=== PATIENT | female | born 1945 | race Caucasian/White ===

== ENCOUNTER 2018-02-24 04:29 | Emergency (ER) | payer OTHER ==
[~2018-02-24] VITALS: Ht 167.6 cm; Wt 86.2 kg
[2018-02-24 04:45] VITALS: BP 131/85
[2018-02-24] MEDS ORDERED: cefTRIAXone SOD 1,000 MG VL IM ONE (07:15)
[2018-02-24] MEDS ORDERED: traMADol HCL 50 MG TAB PO ONE (07:15)
[2018-02-24] MEDS ORDERED: cefTRIAXone SOD 1,000 MG VL ONE (07:16)
== END 2018-02-24 07:45 | disposition home or self-care (01) ==
LOC: ER 04:31
DX: H66.91 Otitis media, unspecified, right ear (principal); F17.210 Nicotine dependence, cigarettes, uncomplicated
CPT/HCPCS: 96372; 99283; J0696

== ENCOUNTER 2024-12-08 14:19 | Inpatient (IN) | payer OTHER ==
[~2024-12-08] VITALS: Ht 167.6 cm; Wt 102.0 kg
--- NOTE | 2024-12-08 14:34 | ECG ---
[facility] Test Date: 2024-12-08 Test Time: 14:28:34 Pat Name: SUSSY DAVISON Department: ED Room: 0217T Gender: F Pulp Screen Operator: SARTHAK : 1945 Requested By: SIMONA ABRAHAM Order Number: [id number] Reading MD: Paul Lake Measurements Intervals [place] Rate: 61 P: 51 MI: 179 QRS: 17 QRSD: 107 T: 24 QT: 419 QTc: 422 Interpretive Statements Sinus rhythm Low voltage, precordial leads Borderline T abnormalities, anterior leads Electronically Signed On 12-09-2024 17:29:54 PDT by Paul Lake Please click the below link to view image of tracing.
--- NOTE | 2024-12-08 14:50 | ED.PDOC ---
SOB-HPI HPI Comments 79y F who presents to the ED via EMS for chief complaint of shortness of breath. Per EMS, pt was at urgent care after being brought by family for nausea, vomiting and diarrhea for the past few days. Pt in the ED, had EKG done and states it was abnormal with Q waves and EMS was called to the scene. EMS arrived on scene and noted pt was placed on 02 with 02 sat ranging from 90 to 96% with no noted respiratory distress. Pt in the ED, states she quit cigarettes 6 months prior and since, has been having increasing shortness of breath since. Pt otherwise denies any other symptoms at this time. 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 Family History Family History: Unknown Social History Smoker: Quit Less Than 1 Year, Cigarettes Alcohol: Denies ETOH Use Drugs: Denies Drug Use Lives In: Home Constitutional: denies: chills, diaphoresis, fatigue, fever, malaise, sweats, weakness, others EENTM: denies: blurred vision, double vision, ear bleeding, ear discharge, ear drainage, ear pain, ear ringing, eye pain, eye redness, hearing loss, mouth pain, mouth swelling, nasal discharge, nose bleeding, nose congestion, nose pain, photophobia, tearing, throat pain, throat swelling, voice changes, others Respiratory: reports: shortness of breath; denies: cough, hemoptysis, orthopnea, SOB at rest, SOB with excertion, stridor, wheezing, others Cardiovascular: denies: chest pain, dizzy spells, diaphoresis, Dyspnea on exertion, edema, irregular heart beat, left arm pain, lightheadedness, palpitations, PND, syncope, others Gastrointestinal: denies: abdomen distended, abdominal pain, blood streaked bowels, constipated, diarrhea, dysphagia, difficulty swallowing, hematemesis, melena, nausea, poor appetite, poor fluid intake, rectal bleeding, rectal pain, vomiting, others Genitourinary: denies: abnormal vagina bleeding, burning, dyspareunia, dysuria, flank pain, frequency, hematuria, incontinence, pain, , vagina discharge, urgency, others Neurological: denies: dizziness, fainting, headache, left sided numbness, left sided weakness, numbness, paresthesia, pre-existing deficit, right sided numbness, right sided weakness, seizure, speech problems, tingling, tremors, weakness, others Musculoskeletal: denies: back pain, gout, joint pain, joint swelling, muscle pain, muscle stiffness, neck pain, others Integumetry: denies: bruises, change in color, change in hair/nails, dryness, laceration, lesions, lumps, rash, wounds, others Allergic/Immunocompromised: denies: Difficulty Healing, Frequent Infections, Hives, Itching, others Hematologic/Lymphatic: denies: anemia, blood clots, easy bleeding, easy bruising, swollen glands, others Endocrine: denies: excessive hunger, excessive sweating, excessive thirst, excessive urination, flushing, intolerance to cold, intolerance to heat, unexplained weight gain, unexplained weight loss, others Psychiatric: denies: anxiety, bipolar disorder, depression, hopeless, panic disorder, schizophrenia, sleepless, suicidal, others All Other Systems: Reviewed and Negative Physical Exam General Appearance: No Apparent Distress, Normal HEENT: Normal ENT Inspection, Pharynx Normal, TMs Normal Neck: Full Range of Motion, Non-Tender, Normal, Normal Inspection Respiratory: Chest Non-Tender, Lungs Clear, No Accessory Muscle Use, No Respiratory Distress, Normal Breath Sounds Cardiovascular: No Edema, No JVD, No Murmur, No Gallop, Normal Peripheral Pulses, Regular Rate/Rhythm Breast Exam: Deferred Gastrointestinal: No Organomegaly, Non Tender, No Pulsatile Mass, Normal Bowel Sounds, Soft Genitalia: Deferred Pelvic: Deferred Rectal: Deferred Extremities: No calf tenderness, Normal capillary refill, Normal inspection, Normal range of motion, Non-tender, No pedal edema Musculoskeletal : Apperance: Normal Neurologic: Alert, metal technician II-XII nml as Tested, No Motor Deficits, Normal Affect, Normal Mood, No Sensory Deficits Cerebellar Function: Normal Reflexes: Normal Skin: Dry, Normal Color, Warm Lymphatic: No Adenopathy EKG EKG : Pulse Rate (adult): 61 [place]: Normal Cardiac Rhythm: NSR Block: None Hypertrophy: None ST: Normal Was a procedure done? Was a procedure done?: No Differential Dx Differential Diagnosis: Anxiety, Asthma, Bronchitis, CHF, COPD, Hypertension, Myocardial infarction, Pneumonia, Pulmonary Embolism, Respiratory Distress, URI X-Ray, Labs, Meds, VS Vital Signs Date Time Temp Pulse Resp B/P (MAP) Pulse Ox O2 Delivery O2 Flow Rate FiO2 12/08/24 15:21 94 Nasal Cannula* 1 12/08/24 15:18 97.6 65 14 148/82 (104) 94 97.6 12/08/24 15:18 65 14 94 Nasal Cannula* 1 12/08/24 14:57 97.9 64 20 160/72 (101) 95 97.9 12/08/24 14:50 61 12/08/24 14:28 61 Lab Test 12/08/24 14:48 Range/Units White Blood Count 9.2 4.4-10.8 10^3/uL Red Blood Count 4.73 4.0-5.20 10^6/uL Hemoglobin 14.7 12.2-16.2 g/dL Hematocrit 44.0 36.0-46.0 % Mean Corpuscular Volume 93.0 80.0-100.0 fL Mean Corpuscular Hemoglobin 31.1 28.0-32.0 pg Mean Corpuscular Hemoglobin Concent 33.5 32.0-36.0 g/dL Red Cell Distribution Width 13.5 11.8-14.3 % Platelet Count 219 140-450 10^3/uL Mean Platelet Volume 8.1 6.9-10.8 fL Neutrophils (%) (Auto) 71.2 37.0-80.0 % Lymphocytes (%) (Auto) 19.2 10.0-50.0 % Monocytes (%) (Auto) 7.7 0.0-12.0 % Eosinophils (%) (Auto) 1.1 0.0-7.0 % Basophils (%) (Auto) 0.8 0.0-2.0 % Neutrophils # (Auto) 6.5 1.6-8.6 10 ^3/uL Lymphocytes # (Auto) 1.8 0.4-5.4 10 ^3/uL Monocytes # (Auto) 0.7 0-1.3 10 ^3/uL Eosinophils # (Auto) 0.1 0-0.8 10 ^3/uL Basophils # (Auto) 0.1 0-0.2 10 ^3/uL Nucleated Red Blood Cells 0.2 % Sodium Level 141 136-145 mmol/L Potassium Level 3.6 3.5-5.1 mmol/L Chloride Level 110 H 98-107 mmol/L Carbon Dioxide Level 21 20-31 mmol/L Anion Gap 10 5-15 Blood Urea Nitrogen 11 9-23 mg/dL Creatinine 1.20 H 0.550-1.02 mg/dL Glomerular Filtration Rate Calc 46 >90 mL/min BUN/Creatinine Ratio 9.2 L 10.0-20.0 Serum Glucose 88 74-106 mg/dL Calcium Level 9.7 8.7-10.4 mg/dL Troponin I High Sensitivity 8 </=34 ng/L Time of 1ST Reevaluation: 15:34 Reevaluation 1ST: Improved Patient Education/Counseling: Diagnosis, Treatment, Prognosis, Need For Follow Up Family Education/Counseling: No Family Present Comments pt has been experiencing progressive sob, orthopnea, subjective pedal edema. although she presented to with compliant of n/v/d, they did an EKG and found new Q waves in the inf leads. cxr suggests viral pattern infiltrates vs pulm edema. the history is consistent with CHF, but a viral infection can superimpose causing her GI symptoms. she will be admitted for workup of new onset chf with new Q waves on KGs Departure 1 Departure Time of Disposition: 15:36 Impression: Primary Impression: Acute diastolic (congestive) heart failure Additional Impression: Viral syndrome Disposition: ADMITTED INPATIENT Admit to: [facility] Condition: Serious Discharged With: Self Critical Care Note Critical Care Time?: Yes (45 min-critical care time only) Critical care comment: Due to concerns for patients condition deteriorating, the care required my highest level of attention and readiness to intervene. I assessed the patient, reviewed the medical records, ordered the appropriate tests and treatments, then reassessed for results and responsiveness. I communicated with medical personnel and consultants and formulated a plan of care. Total critical care time excludes any procedures Stability Stability form required: No Heart Score Heart Score: Heart Score Response (Comments) Value History Slightly Suspicious 0 EKG Normal 0 Age >65 2 Risk Factors 1 or 2 risk factors 1 Troponin Normal limit 0 Total 3 I personally scribed for SIMONA ABRAHAM MD ([email or web address]) on 12/08/24 at 14:50. Electronically submitted by Miriam Blevins ([email or web address]). SIMONA ABRAHAM MD Dec 08, 2024 14:50
[2024-12-08 15:05] LABS: Basophils # (auto) 0.1 10 ^3/uL (0-0.2); Basophils % (auto) 0.8 % (0.0-2.0); Eosinophils # (auto) 0.1 10 ^3/uL (0-0.8); Eosinophils % (auto) 1.1 % (0.0-7.0); Hemoglobin 14.7 g/dL (12.2-16.2); Lymphocytes # (auto) 1.8 10 ^3/uL (0.4-5.4); Lymphocytes % (auto) 19.2 % (10.0-50.0); Mean Corpuscular Hemoglobin 31.1 pg (28.0-32.0); Mean Corpuscular Hgb Conc. 33.5 g/dL (32.0-36.0); Monocytes # (auto) 0.7 10 ^3/uL (0-1.3); Monocytes % (auto) 7.7 % (0.0-12.0); Neutrophils # (auto) 6.5 10 ^3/uL (1.6-8.6); Neutrophils % (auto) 71.2 % (37.0-80.0); Nucleated Red Blood Cells % 0.2 %; Platelet Count (auto) 219 10^3/uL (140-450); Red Blood Cells 4.73 10^6/uL (4.0-5.20); Red Cell Distribution Width 13.5 % (11.8-14.3); White Blood Cell 9.2 10^3/uL (4.4-10.8)
--- NOTE | 2024-12-08 15:07 | DVH ---
CHEST RADIOGRAPH Indication: sob Technique: Single frontal view of the chest was obtained COMPARISON: None FINDINGS: Lines and Tubes: None Lungs: Mild increased interstitial prominence Pleura: No effusion. No pneumothorax. Cardiomediastinal contours: Unremarkable Bones: Unremarkable IMPRESSION: Possible mild pulmonary vascular congestion or viral pneumonia
[2024-12-08 15:11] LABS: Potassium 3.6 mmol/L (3.5-5.1); Sodium 141 mmol/L (136-145)
[2024-12-08 15:12] LABS: Anion Gap 10 (5-15); Calcium 9.7 mg/dL (8.7-10.4); Carbon Dioxide 21 mmol/L (20-31)
[2024-12-08 15:17] LABS: BUN/Creatinine Ratio 9.2 (10.0-20.0); Blood Urea Nitrogen 11 mg/dL (9-23); Glucose 88 mg/dL (74-106)
[2024-12-08 15:18] VITALS: PULSE 65; RESP 14; O2SAT 94
[2024-12-08 15:24] LABS: Chloride 110 mmol/L (98-107)
[2024-12-08] MEDS ORDERED: MORPHINE SULFATE INJ 2 MG/ml SYRG IV PRN ×2 (17:30)
[2024-12-08] MEDS: FUROSEMIDE 40 MG/4 ML VIAL IV SCH (17:30)
[2024-12-08] MEDS ORDERED: ACETAMINOPHEN 325 MG TAB PO PRN (17:30)
[2024-12-08] MEDS ORDERED: NITROGLYCERIN 0.4 MG SL TAB SL PRN (17:30)
[2024-12-08] MEDS ORDERED: ONDANSETRON HCL 4 MG/2 ML VIAL IV PRN (17:30)
[2024-12-08] MEDS ORDERED: hydrALAZINE HCL 20 MG/ML VL IV PRN (17:45)
--- NOTE | 2024-12-08 19:16 | DVHINCON2 ---
Date of service: Dec 08, 2024 Referring Physician Leeroy Reason for Consultation CHF History of Present Illness This is a 79 year old female with a PMH of high lipids who is brought in by EMS with complaint of shortness of breath. Per EMS, patient was seen at a local urgent care after being brought by family for nausea, vomiting and diarrhea for the past few days. Patient had EKG done at and was reported to be abnormal and EMS was called. Patient states she quit cigarettes 6 months prior and since has been having increasing shortness of breath since. EKG is NSR at 61. CBC is unremarkable. Medical Practice Manager minimally elevated at 1.20. BNP 37.87. Troponin negative x3. Chest x-ray shows possible mild pulmonary vascular congestion or viral pneumonia. Patient was admitted to the hospital. I am asked to consult on this patient. Allergies: Coded Allergies: NO KNOWN ALLERGIES (Unverified , 02/24/18) Current Medications Current Medications Medications (Trade) Dose Ordered Sig/Leonel Route PRN Reason Start Time Stop Time Status Last Admin Acetaminophen/ Hydrocodone Bitart ([place] 5/325MG Tab) 1 tab Q4HP PRN PO MODERATE PAIN (4-6 PAIN SCALE) 12/08/24 17:30 Ondansetron HCl (Zofran) 4 mg Q4HP PRN IV NAUSEA / VOMITING 12/08/24 17:30 Docusate Sodium (Colace Capsule) 100 mg BIDPRN PRN PO FOR CONSTIPATION 12/08/24 17:30 Enoxaparin Sodium (Lovenox) 30 mg DAILY SC 12/09/24 10:00 Acetaminophen (Tylenol Tablet) 650 mg Q6HP PRN PO PAIN SCALE 1-3 OR TEMP>100.4 12/08/24 17:30 Morphine Sulfate 2 mg Q4HPRN PRN IV SEVERE PAIN (7-10 PAIN SCALE) 12/08/24 17:30 Nitroglycerin (Ntrostat Sublingual) 0.4 mg Q5MINP PRN SL FOR CHEST PAIN 12/08/24 17:30 Morphine Sulfate 2 mg Q30M PRN IV FOR CHEST PAIN 12/08/24 17:30 Furosemide (Lasix Injection) 40 mg BIDD IV 12/08/24 17:30 Hydralazine HCl (Apresoline Injection) 10 mg Q6HP PRN IV SBP>150 12/08/24 17:45 Review of Systems Constitutional: denies: chills, diaphoresis, fatigue, fever, malaise, sweats, weakness, others EENTM: denies: blurred vision, double vision, ear bleeding, ear discharge, ear drainage, ear pain, ear ringing, eye pain, eye redness, hearing loss, mouth pain, mouth swelling, nasal discharge, nose bleeding, nose congestion, nose pain, photophobia, tearing, throat pain, throat swelling, voice changes, others Respiratory: reports: shortness of breath; denies: cough, hemoptysis, orthopnea, SOB at rest, SOB with excertion, stridor, wheezing, others Cardiovascular: denies: chest pain, dizzy spells, diaphoresis, Dyspnea on exertion, edema, irregular heart beat, left arm pain, lightheadedness, palpitations, PND, syncope, others Gastrointestinal: denies: abdomen distended, abdominal pain, blood streaked bowels, constipated, diarrhea, dysphagia, difficulty swallowing, hematemesis, melena, nausea, poor appetite, poor fluid intake, rectal bleeding, rectal pain, vomiting, others Genitourinary: denies: abnormal vagina bleeding, burning, dyspareunia, dysuria, flank pain, frequency, hematuria, incontinence, pain, , vagina discharge, urgency, others Neurological: denies: dizziness, fainting, headache, left sided numbness, left sided weakness, numbness, paresthesia, pre-existing deficit, right sided numbness, right sided weakness, seizure, speech problems, tingling, tremors, weakness, others Musculoskeletal: denies: back pain, gout, joint pain, joint swelling, muscle pain, muscle stiffness, neck pain, others Integumetry: denies: bruises, change in color, change in hair/nails, dryness, laceration, lesions, lumps, rash, wounds, others Allergic/Immunocompromised: denies: Difficulty Healing, Frequent Infections, Hives, Itching, others Hematologic/Lymphatic: denies: anemia, blood clots, easy bleeding, easy bruising, swollen glands, others Endocrine: denies: excessive hunger, excessive sweating, excessive thirst, excessive urination, flushing, intolerance to cold, intolerance to heat, unexplained weight gain, unexplained weight loss, others Psychiatric: denies: anxiety, bipolar disorder, depression, hopeless, panic disorder, schizophrenia, sleepless, suicidal, others All Other Systems: Reviewed and Negative Vital Signs Vital Signs Date Time Temp Pulse Resp B/P (MAP) Pulse Ox O2 Delivery O2 Flow Rate FiO2 12/08/24 17:24 97.8 59 11 133/62 (85) 96 97.8 12/08/24 15:21 Nasal Cannula* 1 24 Physical Exam GENERAL: Alert and oriented x 3. No acute distress. EYES: PERRL, EOMI. Anicteric. HENT: Moist mucous membranes. LUNGS: Diminished breath sounds. CARDIOVASCULAR: Regular rate and rhythm. ABDOMEN: Soft, nontender and nondistended. EXTREMITIES: No edema. NEUROLOGIC: No focal neurological deficits. SKIN: Warm, dry. Labs/Diagnostic Data Labs Test 12/08/24 17:35 12/08/24 14:48 Range/Units D-Dimer, Quantitative 0.31 0.0-0.49 mg/L FEU Troponin I High Sensitivity 8 </=34 ng/L B-Type Natriuretic Peptide 37.87 0-100 pg/mL White Blood Count 9.2 4.4-10.8 10^3/uL Red Blood Count 4.73 4.0-5.20 10^6/uL Hemoglobin 14.7 12.2-16.2 g/dL Hematocrit 44.0 36.0-46.0 % Mean Corpuscular Volume 93.0 80.0-100.0 fL Mean Corpuscular Hemoglobin 31.1 28.0-32.0 pg Mean Corpuscular Hemoglobin Concent 33.5 32.0-36.0 g/dL Red Cell Distribution Width 13.5 11.8-14.3 % Platelet Count 219 140-450 10^3/uL Mean Platelet Volume 8.1 6.9-10.8 fL Neutrophils (%) (Auto) 71.2 37.0-80.0 % Lymphocytes (%) (Auto) 19.2 10.0-50.0 % Monocytes (%) (Auto) 7.7 0.0-12.0 % Eosinophils (%) (Auto) 1.1 0.0-7.0 % Basophils (%) (Auto) 0.8 0.0-2.0 % Neutrophils # (Auto) 6.5 1.6-8.6 10 ^3/uL Lymphocytes # (Auto) 1.8 0.4-5.4 10 ^3/uL Monocytes # (Auto) 0.7 0-1.3 10 ^3/uL Eosinophils # (Auto) 0.1 0-0.8 10 ^3/uL Basophils # (Auto) 0.1 0-0.2 10 ^3/uL Nucleated Red Blood Cells 0.2 % Sodium Level 141 136-145 mmol/L Potassium Level 3.6 3.5-5.1 mmol/L Chloride Level 110 H 98-107 mmol/L Carbon Dioxide Level 21 20-31 mmol/L Anion Gap 10 5-15 Blood Urea Nitrogen 11 9-23 mg/dL Creatinine 1.20 H 0.550-1.02 mg/dL Glomerular Filtration Rate Calc 46 >90 mL/min BUN/Creatinine Ratio 9.2 L 10.0-20.0 Serum Glucose 88 74-106 mg/dL Calcium Level 9.7 8.7-10.4 mg/dL Assessment Acute diastolic (congestive) heart failure. SOB. HLD. Plan/Recommendation I agree with your ongoing assessment and care of plan. Telemetry reviewed. Echocardiogram. Morphine and [place] for pain management. DVT prophylactics. Diuretics with Lasix. IV Hydralazine for SBP >150. Additional plan as per the hospital course. A total of 45 minutes was spent reviewing the patient record, examining the patient, making a diagnostic and therapeutic plan, discussing this plan with medical personnel, following up on diagnostic studies and following the patient for clinical stability excluding any and all procedures. At least 50% of this time was spent in direct, [id number] contact. Plan discussed with: Patient MIKE GARCIA MD Dec 08, 2024 18:52
[2024-12-08 19:38] VITALS: PULSE 72; RESP 16; O2SAT 95
[2024-12-08 21:45] VITALS: BP 154/85; PULSE 66; RESP 17; O2SAT 96
[2024-12-08] MEDS: GABAPENTIN 300 MG CAP PO SCH (21:55)
[2024-12-08 22:00] VITALS: PULSE 59
[2024-12-09] VITALS (8 sets, daily range): BP systolic 110–149; BP diastolic 71–83; PULSE 58–84; RESP 17–20; TEMP 96.2–98; O2SAT 90–97
--- NOTE | 2024-12-09 00:10 | DVHHP2 ---
RICARDO BROCK PRIVACY DIRECTOR 12/09/24 0010: History of Present Illness Reason for Visit: Abnormal EKG, SOB History of Present Illness 79-year-old female was initially seen at urgent care with complaints of nausea vomiting diarrhea. While at urgent care was noted to have an abnormal EKG. Patient was also mildly hypoxic with an oxygen saturation 90%. EMS was activated to take the patient to the emergency department for an abnormal EKG. As such time patient was placed on 2 L nasal cannula which increased the oxygen saturation to 96%. During the emergency department evaluation Na 141, K3.6, BUN 11, creatinine 1.20, GFR 46. Troponins flat trending . EKG was sinus rhythm with borderline T-wave abnormalities in the anterior leads. Chest x-ray impression was positive for pulmonary vascular congestion. Shortness of breath has improved as patient is tolerating 2 L nasal cannula. At this time patient denies fevers, chills, dizziness, palpitations, chest pain, leg edema Cardiovascular: HTN Renal/: Chronic renal insuff Smoke: Quit ALCOHOL: none Drugs: None Lives: with Family Review of Systems Constitutional: Yes: Malaise; No: Fever, Chills, Sweats, Weakness, Other Eyes: No: Pain, Vision change, Conjunctivae inflammation, Eyelid inflammation, Other, Redness ENT: No: Ear pain, Ear discharge, Nose pain, Nose discharge, Nose congestion, Mouth pain, Mouth swelling, Throat pain, Throat swelling, Other Respiratory: Shortness of breath; No: Cough, Dry, SOB with excertion, Wheezing, Hemoptysis, Pleuritic Pain, Sputum, Wheezing, Other Gastrointestinal: Nausea, Vomiting, Diarrhea; No: Abdominal Pain, Constipation, Melena, Hematochezia, Other Genitourinary: No Dysuria, No Frequency, No Incontinence, No Hematuria, No Retention, No Other Musculoskeletal: No: other, neck pain, shoulder pain, arm pain, back pain, hand pain, leg pain, foot pain Skin: No: Rash, Lesions, Jaundice, Bruising, Other Neurological: No: Weakness, Numbness, Incoordination, Change in speech, Confusion, Seizures, Other Allergies: Coded Allergies: NO KNOWN ALLERGIES (Unverified , 02/24/18) Medications Current Medications Medications Dose Ordered Sig/Leonel Route Start Time Stop Time Status Last Admin Dose Admin Acetaminophen/ Hydrocodone Bitart 1 tab Q4HP PRN PO 12/08/24 17:30 Ondansetron HCl 4 mg Q4HP PRN IV 12/08/24 17:30 Docusate Sodium 100 mg BIDPRN PRN PO 12/08/24 17:30 Enoxaparin Sodium 30 mg DAILY SC 12/09/24 10:00 Acetaminophen 650 mg Q6HP PRN PO 12/08/24 17:30 Morphine Sulfate 2 mg Q4HPRN PRN IV 12/08/24 17:30 Nitroglycerin 0.4 mg Q5MINP PRN SL 12/08/24 17:30 Morphine Sulfate 2 mg Q30M PRN IV 12/08/24 17:30 Furosemide 40 mg BIDD IV 12/08/24 17:30 12/08/24 17:30 40 MG Hydralazine HCl 10 mg Q6HP PRN IV 12/08/24 17:45 Gabapentin 300 mg BID PO 12/08/24 22:00 12/08/24 21:55 300 MG Exam Vital Signs Vital Signs Date Time Temp Pulse Resp B/P (MAP) Pulse Ox O2 Delivery O2 Flow Rate FiO2 12/08/24 21:45 66 17 154/85 (108) 96 12/08/24 21:45 Nasal Cannula* 1 24 12/08/24 19:35 98.2 98.2 General Appearance: Alert, Oriented X3, Cooperative, mild distress HEENT: Atraumatic, PERRLA, EOMI Respiratory: Normal air movement, Other (Diminished air exchange. On 2 L NC) Cardiovascular: Regular rate, Normal S1, Normal S2 Abdominal: Normal bowel sounds, Soft, No tenderness Extremities: No clubbing, No cyanosis, No edema Skin: No breakdown Neuro: Normal speech, Strength at 5/5 X4 ext Psych/Mental Status: Mental status NL, Mood NL Labs/Xrays Labs Test 12/08/24 17:35 12/08/24 14:48 Range/Units D-Dimer, Quantitative 0.31 0.0-0.49 mg/L FEU Troponin I High Sensitivity 8 </=34 ng/L B-Type Natriuretic Peptide 37.87 0-100 pg/mL White Blood Count 9.2 4.4-10.8 10^3/uL Red Blood Count 4.73 4.0-5.20 10^6/uL Hemoglobin 14.7 12.2-16.2 g/dL Hematocrit 44.0 36.0-46.0 % Mean Corpuscular Volume 93.0 80.0-100.0 fL Mean Corpuscular Hemoglobin 31.1 28.0-32.0 pg Mean Corpuscular Hemoglobin Concent 33.5 32.0-36.0 g/dL Red Cell Distribution Width 13.5 11.8-14.3 % Platelet Count 219 140-450 10^3/uL Mean Platelet Volume 8.1 6.9-10.8 fL Neutrophils (%) (Auto) 71.2 37.0-80.0 % Lymphocytes (%) (Auto) 19.2 10.0-50.0 % Monocytes (%) (Auto) 7.7 0.0-12.0 % Eosinophils (%) (Auto) 1.1 0.0-7.0 % Basophils (%) (Auto) 0.8 0.0-2.0 % Neutrophils # (Auto) 6.5 1.6-8.6 10 ^3/uL Lymphocytes # (Auto) 1.8 0.4-5.4 10 ^3/uL Monocytes # (Auto) 0.7 0-1.3 10 ^3/uL Eosinophils # (Auto) 0.1 0-0.8 10 ^3/uL Basophils # (Auto) 0.1 0-0.2 10 ^3/uL Nucleated Red Blood Cells 0.2 % Sodium Level 141 136-145 mmol/L Potassium Level 3.6 3.5-5.1 mmol/L Chloride Level 110 H 98-107 mmol/L Carbon Dioxide Level 21 20-31 mmol/L Anion Gap 10 5-15 Blood Urea Nitrogen 11 9-23 mg/dL Creatinine 1.20 H 0.550-1.02 mg/dL Glomerular Filtration Rate Calc 46 >90 mL/min BUN/Creatinine Ratio 9.2 L 10.0-20.0 Serum Glucose 88 74-106 mg/dL Calcium Level 9.7 8.7-10.4 mg/dL Assessment/Plan Assessment/Plan Acute congestive heart failure Abnormal EKG Hypoxia Viral syndrome Hx hypertension Hx CKD Plan Admit to telemetry Cardiology consult. Echocardiogram. As needed antihypertensive optimal BP management. Diurese with lasix as needed. Continue home medication Supplemental oxygen to maintain O2 saturation greater than 93% Monitor BMP. Trend BUN/creatinine. DVT ppx lovenox Plan discussed with: Patient My Orders Orders - RICARDO BROCK NP Procedure Category Date Status Time Gabapentin Capsule PHA 12/08/24 In Process (Neurontin Capsule) 22:00 Date of Service: Dec 09, 2024 Billing Provider: YASMINE HERNANDEZ MD Common Visit Codes: NOT BILLABLE YASMINE HERNANDEZ MD 12/09/24 1207: Review of Systems Allergies: Coded Allergies: NO KNOWN ALLERGIES (Unverified , 02/24/18) Additional Comments Additional Comments Additional Comments Patient's chart is reviewed and discussed with the nurse practitioner. I agree with his evaluation, documentation, assessment and care plan as outlined. RICARDO BROCK NP Dec 09, 2024 00:10 YASMINE HERNANDEZ MD Dec 09, 2024 12:07
[2024-12-09] MEDS: HYDROcodone-ACET 5/325MG TAB PO PRN (02:05)
[2024-12-09 08:12] LABS: Alanine Aminotransferase 20 U/L (7-40); Albumin 4.2 g/dL (3.2-4.8); Alkaline Phosphatase 81 U/L (46-116); Anion Gap 10 (5-15); Aspartate Aminotransferase 25 U/L (<34); BUN/Creatinine Ratio 10.2 (10.0-20.0); Blood Urea Nitrogen 12 mg/dL (9-23); Calcium 9.8 mg/dL (8.7-10.4); Carbon Dioxide 26 mmol/L (20-31); Glucose 84 mg/dL (74-106); Potassium 3.9 mmol/L (3.5-5.1); Sodium 145 mmol/L (136-145); Total Protein 6.3 g/dL (5.7-8.2)
[2024-12-09 08:13] LABS: Bilirubin, Total 0.4 mg/dL (0.2-1.0)
[2024-12-09 08:14] LABS: Chloride 109 mmol/L (98-107)
[2024-12-09] MEDS: ENOXAPARIN SOD 30 MG/0.3 ML SYRINGE SC SCH (09:00)
--- NOTE | 2024-12-09 15:46 | DVHSR ---
APPROVED REPORT EXAM: LIMITED Two-dimensional and M-mode echocardiogram with Doppler and color Doppler. Blood Pressure: 122/75 mmHg INDICATION CHF RISK FACTORS Height: 5' 6", Weight: 220 DIMENSIONS LVDd4.3 (3.8-5.7cm)LA (2D)3.3 (1.9-4.0cm)Aortic Root3.2 (2.0-3.7cm) LVDs3.0 (2.5-4.0cm)LA (MM) (1.9-4.0cm)Aortic Cusp Exc1.7 (1.5-2.0cm) EF (%) 57.0 (55-70%)Rt. Atrium3.7 (1.9-4.0cm)Asc. Aorta cm IVSd1.0 (0.7-1.1cm)RV (D) (1.8-2.4cm) PWd1.0 (0.7-1.1cm) Mitral Valve MitralMitral Stenosis E wave0.80m/sMV Mean GR.mmHg A wave1.00m/sMV Peak GR.mmHg E/A ratio0.82D MVAcm2 Aortic Valve Aortic ValveAortic Stenosis V11.00m/Robert Mean GR.3mmHg V21.20m/Robert Peak GR.6mmHg LVOT Diameter2.2 (1.8-2.4cm)Doppler AVA3.17cm2 Pulmonic Valve V20.60m/s Tricuspid Valve TR Velocity2.40m/s [id number] Other Information Quality : Technically LimitedRhythm : Technically limited study due to body habitus, patient with double breast lift surgery with reductio n. Conclusion Technically good study. Sinus rhythm. Left atrial enlargement with concentric LVH. Valves are normal. EF of 60% with normal RV function. Moderate TR. No pericardial effusion masses or vegetations discernible.
--- NOTE | 2024-12-09 17:28 | DVHPN2 ---
Progress Note - Dictate Date Seen: Dec 09, 2024 Medical Necessity Reason Pt with a Central, PICC or Fol: No Subjective Patient was seen and evaluated in follow up. Patient is complaining of abdominal pain. Patient denies any further N/V/D. Echocardiogram shows an EF of 60%. Telemetry reviewed. vital signs Vital Sign Date Time Temp Pulse Resp B/P (MAP) Pulse Ox O2 Delivery O2 Flow Rate FiO2 12/09/24 09:14 97.6 76 20 141/78 (99) 95 97.6 12/09/24 08:00 Room Air* 0 21 Total Intake and Output 12/08/24 12/08/24 12/09/24 15:00 23:00 07:00 Intake Total 240 ml Balance 240 ml medications Current Medications Medications Dose Ordered Sig/Leonel Route Start Time Stop Time Status Last Admin Dose Admin Acetaminophen/ Hydrocodone Bitart 1 tab Q4HP PRN PO 12/08/24 17:30 12/09/24 02:05 1 TAB Ondansetron HCl 4 mg Q4HP PRN IV 12/08/24 17:30 Docusate Sodium 100 mg BIDPRN PRN PO 12/08/24 17:30 Enoxaparin Sodium 30 mg DAILY SC 12/09/24 10:00 12/09/24 09:00 30 MG Acetaminophen 650 mg Q6HP PRN PO 12/08/24 17:30 Morphine Sulfate 2 mg Q4HPRN PRN IV 12/08/24 17:30 Nitroglycerin 0.4 mg Q5MINP PRN SL 12/08/24 17:30 Morphine Sulfate 2 mg Q30M PRN IV 12/08/24 17:30 Furosemide 40 mg BIDD IV 12/08/24 17:30 12/09/24 06:11 40 MG Hydralazine HCl 10 mg Q6HP PRN IV 12/08/24 17:45 Gabapentin 300 mg BID PO 12/08/24 22:00 12/09/24 08:59 300 MG objective GENERAL: Alert and oriented x 3. No acute distress. EYES: PERRL, EOMI. Anicteric. HENT: Moist mucous membranes. LUNGS: Diminished breath sounds. CARDIOVASCULAR: Regular rate and rhythm. ABDOMEN: Soft, nontender and nondistended. EXTREMITIES: No edema. NEUROLOGIC: No focal neurological deficits. SKIN: Warm, dry. laboratory and microbiology Laboratory Tests 12/09/24 05:08 12/08/24 14:48 Test 12/09/24 05:08 Range/Units Serum Glucose 84 74-106 mg/dL Problem List Acute diastolic (congestive) heart failure. SOB. HLD. Assessment/Plan Continued all current supportive medical care. Morphine and [place] for pain management. DVT prophylactics. Diuretics with Lasix. IV Hydralazine for SBP >150. Additional plan as per the hospital course. Plan discussed with: Patient MIKE GARCIA MD Dec 09, 2024 13:41
[2024-12-10] VITALS (7 sets, daily range): BP systolic 115–127; BP diastolic 65–88; PULSE 58–86; RESP 18–20; TEMP 96.7–97.9; O2SAT 89–100
[2024-12-10] MEDS: DOCUSATE SOD 100 MG CAP PO PRN (10:24)
[2024-12-10] MEDS ORDERED: FLUT500M2 INH (13:47)
[2024-12-10] MEDS ORDERED: OMEP20TA PO (13:47)
[2024-12-10] MEDS ORDERED: FURO1TAB31 PO (13:47)
[2024-12-10] MEDS: IOHEXOL 300 MG/ML 100ML BOTTLE IJ ONE (14:03)
--- NOTE | 2024-12-10 15:05 | DVH ---
Exam: CT CT AB PEL WITH IV CON ONLY History: abdo pain Comparison Study: None Contrast: Type of contrast: Omnipaque 350 Contrast injected: 99 mL Contrast wasted: 0 TECHNIQUE: A digital personal lines insurance advisor image was obtained. During the uneventful, intravenous administration of c ontrast material, multislice data acquisition was obtained through the abdomen and pelvis. The data s et was subsequently reconstructed into axial images. Images were reviewed on a work station using a c ombination of axial and multiplanar using a variety of window levels and settings. Radiation Dose Information: CT Dose: CTDI volume is 23.46 mGy. Dose-length product is 1267.6 mGy*cm FINDINGS: Lung Bases: No acute or significant lung base finding. Normal heart size. No pleural or pericardial effusion. Liver: The liver is normal in size. No focal lesions. Normal hepatic vascular enhancement. Gallbladder and Biliary Tree: Unremarkable Spleen: Unremarkable Pancreas: The pancreas is normal in appearance without focal lesions or abnormal enhancement. Adrenal Glands: Unremarkable Kidneys: Kidneys demonstrate normal symmetric enhancement without focal lesions, calculi or hydroneph rosis. Bladder: Unremarkable Bowel: The stomach is grossly normal in appearance. Small bowel and colon are normal in caliber and d istribution. The appendix is not visualized; however, no secondary findings of acute appendicitis abdirashid ntified. Ascites: Absent Lymphadenopathy: No mesenteric, retroperitoneal or periportal lymphadenopathy. Abdominal Wall and Mesentery: Unremarkable. Vasculature: The visualized abdominal aorta is normal in size and caliber. Abdominal and pelvic vess els demonstrate normal enhancement. Pelvic Organs: Unremarkable Musculoskeletal: No aggressive focal bony lesions, acute fractures or dislocation. Soft tissues: Unremarkable. IMPRESSION: 1. No calcified gallstones. 2. No CT findings of bowel obstruction. 3. Small cortical cysts left kidney largest measures 16 mm. 4. Degenerative disc changes at L4-5 and L5-S1 5. All CT scans at this medical facility are performed using dose modulation techniques as appropriat e to a performed exam including the following: Automated exposure control was utilized; adjustment of the MA and/or KV according to patient size; and use of iterative reconstruction technique.
--- NOTE | 2024-12-10 16:07 | DVHDS2 ---
Discharge Summary Date of Admission Dec 08, 2024 at 17:24 Date of Discharge: Dec 10, 2024 Labs/Diagnostic Data: Laboratory Results Test 12/09/24 05:08 12/08/24 17:35 12/08/24 14:48 Sodium Level 145 mmol/L (136-145) Potassium Level 3.9 mmol/L (3.5-5.1) Chloride Level 109 mmol/L (98-107) Carbon Dioxide Level 26 mmol/L (20-31) Anion Gap 10 (5-15) Blood Urea Nitrogen 12 mg/dL (9-23) Creatinine 1.18 mg/dL (0.550-1.02) Glomerular Filtration Rate Calc 47 mL/min (>90) BUN/Creatinine Ratio 10.2 (10.0-20.0) Serum Glucose 84 mg/dL (74-106) Calcium Level 9.8 mg/dL (8.7-10.4) Total Bilirubin 0.4 mg/dL (0.2-1.0) Aspartate Amino Transferase (AST) 25 U/L (<34) Alanine Aminotransferase (ALT) 20 U/L (7-40) Alkaline Phosphatase 81 U/L (46-116) Total Protein 6.3 g/dL (5.7-8.2) Albumin 4.2 g/dL (3.2-4.8) D-Dimer, Quantitative 0.31 mg/L FEU (0.0-0.49) Troponin I High Sensitivity 8 ng/L (</=34) B-Type Natriuretic Peptide 37.87 pg/mL (0-100) White Blood Count 9.2 10^3/uL (4.4-10.8) Red Blood Count 4.73 10^6/uL (4.0-5.20) Hemoglobin 14.7 g/dL (12.2-16.2) Hematocrit 44.0 % (36.0-46.0) Mean Corpuscular Volume 93.0 fL (80.0-100.0) Mean Corpuscular Hemoglobin 31.1 pg (28.0-32.0) Mean Corpuscular Hemoglobin Concent 33.5 g/dL (32.0-36.0) Red Cell Distribution Width 13.5 % (11.8-14.3) Platelet Count 219 10^3/uL (140-450) Mean Platelet Volume 8.1 fL (6.9-10.8) Neutrophils (%) (Auto) 71.2 % (37.0-80.0) Lymphocytes (%) (Auto) 19.2 % (10.0-50.0) Monocytes (%) (Auto) 7.7 % (0.0-12.0) Eosinophils (%) (Auto) 1.1 % (0.0-7.0) Basophils (%) (Auto) 0.8 % (0.0-2.0) Neutrophils # (Auto) 6.5 10 ^3/uL (1.6-8.6) Lymphocytes # (Auto) 1.8 10 ^3/uL (0.4-5.4) Monocytes # (Auto) 0.7 10 ^3/uL (0-1.3) Eosinophils # (Auto) 0.1 10 ^3/uL (0-0.8) Basophils # (Auto) 0.1 10 ^3/uL (0-0.2) Nucleated Red Blood Cells 0.2 % Other Laboratory Tests 12/09/24 05:08 12/08/24 14:48 Brief Hx & Hospital Course: 79-year-old female was initially seen at urgent care with complaints of nausea vomiting diarrhea. While at urgent care was noted to have an abnormal EKG. Patient was also mildly hypoxic with an oxygen saturation 90%. EMS was activated to take the patient to the emergency department for an abnormal EKG. As such time patient was placed on 2 L nasal cannula which increased the oxygen saturation to 96%. During the emergency department evaluation Na 141, K3.6, BUN 11, creatinine 1.20, GFR 46. Troponins flat trending . EKG was sinus rhythm with borderline T-wave abnormalities in the anterior leads. Chest x-ray impression was positive for pulmonary vascular congestion. Shortness of breath has improved as patient is tolerating 2 L nasal cannula. At this time patient denies fevers, chills, dizziness, palpitations, chest pain, leg edema. She is admitted and evaluated by protection officer. Had an echocardiogram. Patient received IV diuretics with Lasix seemed to resolve her symptoms. Oxygenating normally on room air. Patient counseled and educated regarding low-salt diet and oral fluid restriction and taking Lasix at home as needed. Patient is also counseled and educated regarding nicotine cessation and COPD management. Patient is given Flovent for COPD management. Otherwise given overall her symptoms resolved she is feeling better clinically back to baseline normal status series felt she could be safely discharged home. I have talked with the patient and her significant other who is at bedside regarding her hospital diagnosis, treatment she received, discharge medications, discharge instructions. They have verbalized understanding of these and agree with the care plan as outlined. Consults/Reason for consult Problem List Acute diastolic (congestive) heart failure. SOB. HLD. Assessment/Plan Continued all current supportive medical care. Morphine and [place] for pain management. DVT prophylactics. Diuretics with Lasix. IV Hydralazine for SBP >150. Additional plan as per the hospital course. Plan discussed with: Patient MIKE GARCIA MD Dec 10, 2024 23:04 Operations or Procedures APPROVED REPORT EXAM: LIMITED Two-dimensional and M-mode echocardiogram with Doppler and color Doppler. Blood Pressure: 122/75 mmHg INDICATION CHF RISK FACTORS Height: 5' 6", Weight: 220 DIMENSIONS LVDd 4.3 (3.8-5.7cm) LA (2D) 3.3 (1.9-4.0cm) Aortic Root 3.2 (2.0- 3.7cm) LVDs 3.0 (2.5-4.0cm) LA (MM) (1.9-4.0cm) Aortic Cusp Exc 1.7 (1.5- 2.0cm) EF (%) 57.0 (55-70%) Rt. Atrium 3.7 (1.9-4.0cm) Asc. Aorta cm IVSd 1.0 (0.7-1.1cm) RV (D) (1.8-2.4cm) PWd 1.0 (0.7-1.1cm) Mitral Valve Mitral Mitral Stenosis E wave 0.80m/s MV Mean GR. mmHg A wave 1.00m/s MV Peak GR. mmHg E/A ratio 0.8 2D MVA cm2 Aortic Valve Aortic Valve Aortic Stenosis V1 1.00m/s AO Mean GR. 3mmHg V2 1.20m/s AO Peak GR. 6mmHg LVOT Diameter 2.2 (1.8-2.4cm) Doppler BISHNU 3.17cm2 Pulmonic Valve V2 0.60m/s Tricuspid Valve TR Velocity 2.40m/s RVSP 30mmHg Other Information Quality : Technically Limited Rhythm : Technically limited study due to body habitus, patient with double breast lift surgery with reduction. Conclusion Technically good study. Sinus rhythm. Left atrial enlargement with concentric LVH. Valves are normal. EF of 60% with normal RV function. Moderate TR. No pericardial effusion masses or vegetations discernible. SIGNED BY: ARIEL LUND Sr., SIGNED DATE/TIME: 12/09/24 0455 Condition at Discharge: Stable Final Diagnosis/Problems List chf, copd Discharge Disposition: Home Discharge Instruct/Medications Diet: Consistent carbohydrate, Cardiac 2g Na,low cholest Activity: No Restrictions, As Tolerated Follow Up/Referral: PCP after 2 weeks Medications: as prescribed per dc med list New Medications: Fluticasone-Salmeterol (Advair Diskus 500/50) 1 Puff Ih 1 PUFF INH BID, #1 INHALER 1 Refill Furosemide (Lasix) 40 Mg Tab 40 MG PO DAILY PRN, #30 TAB Take it daily as needed for leg swelling. Omeprazole (Gnp Omeprazole) 20 Mg Tab 2 TAB PO DAILY, #90 TAB 1 Refill Discharge Statement: "Patient was advised to return to the ER or call 911 if any headaches, dizziness, shortness of breath, chest pain, abdominal pain, bleeding, fevers, or worsening of medical condition. Patient was counseled about treatment plan, medications, possible side effects, patientverbalized understanding. All questions were answered to the best of my ability. This discharge took greater then 30 minutes in planning, reviewing documentation, counseling the patient, and discussing with other team members." ASSESSMENT ASSESSMENT Assessment chf, copd YASMINE HERNANDEZ MD Dec 10, 2024 16:07
[2024-12-10] MEDS ORDERED: IPRAAER6 IN (16:23)
[2024-12-10] MEDS: PANTOPRAZOLE 40 MG TAB PO SCH (17:00)
--- NOTE | 2024-12-10 23:04 | DVHPN2 ---
Progress Note - Dictate Date Seen: Dec 10, 2024 Medical Necessity Reason Pt with a Central, PICC or Fol: No Subjective Patient was seen and evaluated in follow up. Patient has no new complaints at this time. Patient denies any cardiac symptoms. Patient is cardiac stable for discharge. Telemetry reviewed. vital signs Vital Sign Date Time Temp Pulse Resp B/P (MAP) Pulse Ox O2 Delivery O2 Flow Rate FiO2 12/10/24 16:39 97.6 86 19 115/65 (82) 94 97.6 12/10/24 10:51 Room Air* 0 21 Total Intake and Output 12/09/24 12/09/24 12/10/24 15:00 23:00 07:00 Intake Total 450 ml 200 ml Output Total 1300 ml 300 ml Balance -850 ml -100 ml objective GENERAL: Alert and oriented x 3. No acute distress. EYES: PERRL, EOMI. Anicteric. HENT: Moist mucous membranes. LUNGS: Diminished breath sounds. CARDIOVASCULAR: Regular rate and rhythm. ABDOMEN: Soft, nontender and nondistended. EXTREMITIES: No edema. NEUROLOGIC: No focal neurological deficits. SKIN: Warm, dry. laboratory and microbiology Laboratory Tests 12/09/24 05:08 12/08/24 14:48 Test 12/09/24 05:08 Range/Units Serum Glucose 84 74-106 mg/dL Problem List Acute diastolic (congestive) heart failure. SOB. HLD. Assessment/Plan Continued all current supportive medical care. Morphine and [place] for pain management. DVT prophylactics. Diuretics with Lasix. IV Hydralazine for SBP >150. Additional plan as per the hospital course. Plan discussed with: Patient MIKE GARCIA MD Dec 10, 2024 23:04
== END 2024-12-10 17:37 | disposition home or self-care (01) | DRG 291 ==
LOC: EDUNIT# 14:19 → ER 14:19 → EDBD 14:19 → OVERFLOW 17:24 → TELE-CENTR 17:31
PROVIDERS: ADMIT Internal Medicine; ATTEND Internal Medicine
DX: I13.0 Hypertensive heart and chronic kidney disease with heart failure and stage 1 through stage 4 chronic kidney disease, or unspecified chronic kidney disease (principal); I50.33 Acute on chronic diastolic (congestive) heart failure; J96.01 Acute respiratory failure with hypoxia; J44.9 Chronic obstructive pulmonary disease, unspecified; R09.02 Hypoxemia; E78.5 Hyperlipidemia, unspecified; B34.9 Viral infection, unspecified; N18.9 Chronic kidney disease, unspecified; R94.31 Abnormal electrocardiogram [ECG] [EKG]; I35.0 Nonrheumatic aortic (valve) stenosis; Z87.891 Personal history of nicotine dependence
CPT/HCPCS: 36415; 71045; 74177; 80048; 80053; 83880; 84484; 85025; 85379; 93005; 93306; 97163; 99291; G0378

== ENCOUNTER 2025-05-10 09:17 | Outpatient (CLI) | payer MEDICARE, OTHER ==
[~2025-05-10] VITALS: Ht 167.6 cm; Wt 88.0 kg
[~2025-05-10 09:17] MED LIST: FURO1TAB31 PO; GABA-1250 PO; OMEP20TA PO; OXY5T PO; POTA-180 PO
[2025-05-10] MEDS ORDERED: fentaNYL CITRATE 100 MCG/2 ML VL ONE (10:22)
[2025-05-10] MEDS: HEPARIN SODIUM (PORCINE) 5000 UNITS/ML 1ML VIAL ONE (10:22)
[2025-05-10] MEDS: MIDAZOLAM HCL 2MG/2ML 2ml VIAL (1mg/ml) ONE (10:23)
[2025-05-10] MEDS: LIDOCAINE 2%HCL (LOCAL ANESTH.) INJ 20ML MDV ONE (10:23)
[2025-05-10] MEDS: ceFAZolin 1GM/50ML 50 ML IV ONE (10:32)
[2025-05-10 11:19] VITALS: BP 149/49; PULSE 56; RESP 20; O2SAT 97
[2025-05-10 11:23] VITALS: BP 145/57; PULSE 60; RESP 12; O2SAT 96
[2025-05-10 11:38] VITALS: BP 130/65; PULSE 58; RESP 13; O2SAT 95
[2025-05-10 11:53] VITALS: BP 148/69; PULSE 54; RESP 12; O2SAT 92
[2025-05-10 12:08] VITALS: BP 145/74; PULSE 60; RESP 13; O2SAT 92
--- NOTE | 2025-05-10 13:02 | DVH ---
XY Insertion of Venous Cath, HISTORY: PORT A CATH PROCEDURE: Informed consent was obtained. The patient was placed supine on the interventional table. A limited localization ultrasound of the right neck base was obtained. The right upper chest and neck base were prepped with chlorhexidine which was allowed to dry and draped in the usual sterile fashion. Time out was performed. With real-time ultrasound guidance, the internal jugular vein was accessed with a micropuncture kit, and an image documenting patency sent to PACS. The planned skin tract and the port placement site were were infiltrated with lidocaine with epinephrine. The subcutaneous pocket was created with sharp and blunt dissection. The catheter was tunneled through the skin tract to the neck site. The 9.6 [place] port was attached to the tubing flushed. The catheter was trimmed to desired length. The internal jugular vein entrance site was serially dilated and the catheter was placed through a peel-a-way sheath. The port was flushed with heparinized saline and demonstrated satisfactory flow. The skin openings were sutured closed in 1 layer with Vicryl, as well as and Dermabond and Steri Strips and then sterile dressings applied. A post procedure image was obtained. No immediate complication was identified. DAP 45 FLUOROSCOPY TIME: 0.6 minutes. SEDATION: Dr. Alex Merchant was personally responsible for the administration of moderate sedation during the procedure performed, including the use of an independent trained observer who had no other duties during the procedure. The drugs utilized were IV fentanyl and versed (see nursing log for details). The total time of supervision by the attending physician was approximately 30 minutes. FINDINGS: Widely patent right internal jugular vein. Post procedure image demonstrates [id number] in the right upper chest with the tip right atrium. IMPRESSION: Successful placement of 9.6 hebrew right chest [id number].
== END 2025-05-13 17:00 | disposition home or self-care (01) ==
LOC: CATH 09:17
PROVIDERS: ATTEND Radiology Diagnostic Radiology
DX: C41.1 Malignant neoplasm of mandible (principal); C77.9 Secondary and unspecified malignant neoplasm of lymph node, unspecified; I25.2 Old myocardial infarction; I48.91 Unspecified atrial fibrillation; F41.9 Anxiety disorder, unspecified; Z79.01 Long term (current) use of anticoagulants; Z79.899 Other long term (current) drug therapy; Z86.718 Personal history of other venous thrombosis and embolism; Z86.711 Personal history of pulmonary embolism; Z95.4 Presence of other heart-valve replacement; Z98.890 Other specified postprocedural states; Z87.891 Personal history of nicotine dependence
CPT/HCPCS: 36561; 77001; C1769; C1788; J0690; J1644; J2250; J3010; J7030; 99152; 99153